=== PATIENT | female | born 1980 | race Caucasian/White ===

== ENCOUNTER → 2017-07-28 | Outpatient (CLI) | payer BC ==
[~2017-07-28] MED LIST: DULO60CA44 PO
== END | disposition home or self-care (01) ==
LOC: C.PATHSPEC 17:34
PROVIDERS: ATTEND Plastic Surgery
DX: L98.429 Non-pressure chronic ulcer of back with unspecified severity (principal); L90.5 Scar conditions and fibrosis of skin

== ENCOUNTER 2017-10-26 20:32 | Emergency (ER) | payer OTHER ==
[~2017-10-26] VITALS: Ht 172.7 cm; Wt 86.0 kg
[~2017-10-26 20:32] MED LIST changes: -CYM20 PO; -LIDOCAINE HCL 2% 2 ML VIAL (20MG/ML) ONE; -MIDAZOLAM HCL 1 MG/ML 2ML VIAL ONE; -NRN100 PO; -ONDANSETRON INJ 2 MG/ML 2 ML VIAL ONE; -PROM12.57 PO; -PROPOFOL IV EMULSION 10 MG/ML 20 ML VIAL IV ONE; -SIME80CH PO; -SODIUM CHLORIDE 0.9% 500ML 500 ML IV ONE
[2017-10-26 20:42] VITALS: Ht 172.7 cm; Wt 86.0 kg
[2017-10-26] MEDS ORDERED: PROMETHAZINE HCL INJ 12.5 MG in SODIUM CHLORIDE 0.9% 50ML 50 ML IV STA (20:53)
[2017-10-26] MEDS ORDERED: SODIUM CHLORIDE 0.9% 1000ML 1,000 ML IV STA (20:53)
[2017-10-26] MEDS ORDERED: MoRPHine SULFATE 4 MG/ML 1 ML CARP\\VIAL IV STA (20:59)
[2017-10-26 21:24] LABS: BASO % 0.1 %; BASO ABS # 0.02 K/uL (0-0.2); EOS % 0.3 %; EOS ABS # 0.05 K/uL (0-0.5); HEMATOCRIT 42.7 % (37-47); HEMOGLOBIN 14.6 g/dL (12.0-16.0); IG# 0.06 K/uL (0.00-0.02); LYMPH % 6.7 %; MEAN CORPUSCULAR HEMOGLOBIN 30.4 pg (25-34); MEAN CORPUSCULAR HGB CONC 34.2 g/dl (32-36); MEAN PLATELET VOLUME 10.1 fL (7.4-10.4); MONO % 2.6 %; MONO ABS # 0.38 K/uL (0.11-0.59); NEUT % 89.9 %; NEUT ABS # 13.39 K/uL (1.4-6.5); PLATELET COUNT 308 K/uL (130-400); RED CELL DISTRIBUTION WIDTH CV 13.2 % (11.5-14.5)
--- NOTE | 2017-10-26 21:34 | DIAGNOSTIC IMAGING REPORT ---
CHEST ONE VIEW PORTABLE CLINICAL HISTORY: febrile, emesis s/p colonoscopy COMPARISON STUDY: No previous studies for comparison. FINDINGS: The cardiac and mediastinal contours are normal. There is no evidence of focal pulmonary consolidation. There is no evidence of failure. No pleural effusions are visualized.[ There is no free intraperitoneal air. IMPRESSION: No active disease in the chest. Electronically signed by: Arnulfo Fuentes M.D. 10/26/2017 9:33 PM Dictated Date/Time: 10/26/2017 9:33 PM
[2017-10-26 21:43] LABS: CALCIUM 9.1 mg/dl (8.5-10.1); CREATININE 1.06 mg/dl (0.60-1.20); POTASSIUM 3.6 mmol/L (3.5-5.1)
[2017-10-26 21:46] VITALS: O2SAT 99
[2017-10-26 21:46] LABS: TOTAL PROTEIN 7.5 gm/dl (6.4-8.2)
[2017-10-26] MEDS ORDERED: CYM20 PO (22:09)
[2017-10-26] MEDS ORDERED: NRN100 PO (22:09)
[2017-10-26] MEDS ORDERED: MoRPHine SULFATE 2 MG/ML CARP IV STA (22:21)
[2017-10-26 22:52] LABS: INFLUENZA B ANTIGEN Neg for Influ B (NEG)
[2017-10-26 23:47] VITALS: TEMP 37.2
[2017-10-27] MEDS ORDERED: OPTIRAY 320 IV PRN (00:45)
[2017-10-27] MEDS ORDERED: SODIUM CHLORIDE 0.9% 1000ML 1,000 ML IV STA (00:59)
--- NOTE | 2017-10-27 02:17 | EMERGENCY ROOM VISIT NOTE ---
History First contact with patient: 20:51 Chief Complaint: VOMITING Stated Complaint: HAD COLONOSCOPY TODAY,VOMITING,JOINTS HURT Nursing Triage Summary: pt had colonoscopy today. pt states she went home and took a nap. then woke up nauseated and has a severe headache. pt states she ate something and vomited everything up. c/o nausea, dry heaves, and headache. History of Present Illness The patient is a 37 year old female who presents to the Emergency Room via private vehicle accompanied by female friend with complaints of "had colonoscopy today, vomiting, joints hurt". The patient states that she has a history of endometrial cancer, and stage IV endometriosis. She follows in [place] for this. She states that today she underwent an EGD and colonoscopy performed by Dr. Stubbs around 2:30 PM. She states that she was feeling well, was given IV Zofran prior to discharge and went and ate a burger and fries. She states that she was concerned because Zofran does not work for her. She went home to take a nap and when she woke up she vomited. She states that she is very nauseous. She also has a headache. She came here for evaluation. She rates her overall pain as an 8/10. She notes minimal abdominal pain rather just an uncomfortable sensation. Review of Systems A complete 10-point Review of Systems was discussed with the patient, with pertinent positives and negatives listed in the History of Present Illness. All remaining Review of Systems questions can be considered negative unless otherwise specified. Past Medical/Surgical History Endometrial cancer, stage IV endometriosis Family History Noncontributory Social History Smoking Status: Never Smoker Housing Status: lives alone Patient lives alone locally. Current/Historical Medications Scheduled Calcium Phosphate-Cholecalcife (Caltrate Gummy Bites), 1 TAB PO BID Danazol (Danazol), 50 MG PO BID Duloxetine HCl (Duloxetine HCl), 20 MG PO DAILY Multivitamin (Multivitamin), 1 TAB PO DAILY Scheduled PRN Gabapentin (Gabapentin), 100 MG PO HS PRN for Pain Physical Exam Vital Signs Date Time Temp Pulse Resp B/P (MAP) Pulse Ox O2 Delivery O2 Flow Rate FiO2 10/27/17 02:13 100 18 119/58 97 Room Air 10/27/17 02:08 97 10/27/17 00:40 97 18 120/55 98 Room Air 10/26/17 23:47 37.2 10/26/17 22:43 105 18 133/84 98 Room Air 10/26/17 22:08 107 10/26/17 21:46 99 Room Air 10/26/17 20:42 37.7 94 21 113/72 99 Room Air Physical Exam VITAL SIGNS - Vital signs and nursing notes were reviewed. Borderline febrile at 37.7. Stable. GENERAL -37-year-old female appearing her stated age who is in no acute distress but does appear to be in pain and concerned. Communicates well with provider and answers questions appropriately. SKIN - Without rashes. No meningeal or petechial rash. HEAD - NC/AT. EYES - PERRL with EOMI bilaterally. Sclera anicteric. EARS - No deformities of external structures noted on gross examination bilaterally. NOSE - Midline and without cyanosis. No epistaxis or purulent drainage noted. MOUTH/OROPHARYNX - Without perioral cyanosis. Tongue midline with equal elevation of palate bilaterally. No tonsillar hypertrophy, erythema, or exudates noted. Fair dentition noted. NECK - Neck with FROM. Supple to palpation. No nuchal rigidity. LUNGS - Chest wall symmetric without accessory muscle use, intercostals retractions, or central cyanosis. Normal vesicular breath sounds CTA B/L. No wheezes, rales, or rhonchi appreciated. CARDIAC - RRR with S1/S2. No murmur, rubs, or gallops appreciated. ABDOMEN - Abdominal contour normal without pulsations or visible masses. BS normoactive all four quadrants. Generalized upper quadrant tenderness. No palpable masses, hepatosplenomegaly, or ascites noted. EXTREMITIES - No clubbing or peripheral cyanosis. No pretibial edema present. +5 /5 strength noted in UE/LE bilaterally. NEUROLOGIC - Cranial nerves II through XII grossly intact. Sensory intact to light touch throughout. PSYCH - A&O, and cooperates fully with examiner. Pt is very pleasant and interacts well with examiner. Medical Decision & Procedures ER Provider Diagnostic Interpretation: CHEST ONE VIEW PORTABLE CLINICAL HISTORY: febrile, emesis s/p colonoscopy COMPARISON STUDY: No previous studies for comparison. FINDINGS: The cardiac and mediastinal contours are normal. There is no evidence of focal pulmonary consolidation. There is no evidence of failure. No pleural effusions are visualized.[ There is no free intraperitoneal air. IMPRESSION: No active disease in the chest. Electronically signed by: Arnulfo Fuentes M.D. 10/26/2017 9:33 PM Dictated Date/Time: 10/26/2017 9:33 PM KUB as read by myself and the attending physician: No free air. There is a large amount of gas present which is to be expected following the colonoscopy. CT ABDOMEN & PELVIS With Contrast: Patchy airspace opacities in the left lower lobe worrisome for pneumonia or aspiration. 2.1 x 1.9 cm ill-defined soft tissue density in the mesentery of the left mid abdomen (series 2, image 47). This is nonspecific, and may represent an enlarged lymph node versus other soft tissue mass such as desmoid. Follow-up PET /CT may be useful to further characterize metabolic activity. Single mildly prominent fluid-filled loop of small bowel in the left upper quadrant. No evidence of bowel obstruction. Subcentimeter hypodensity in the left kidney is too small to characterize. No urolithiasis or hydronephrosis. Appendix not visualized. Possibly surgically absent. Prior hysterectomy. Fat-containing umbilical hernia. Radiologist: Sharath Burch DO Study ready at 01:13 and initial results transmitted at 01:25 Laboratory Results 10/26/17 21:05 Red Blood Count 4.80, Mean Corpuscular Volume 89.0, Mean Corpuscular Hemoglobin 30.4, Mean Corpuscular Hemoglobin Concent 34.2, Mean Platelet Volume 10.1, Neutrophils (%) (Auto) 89.9, Lymphocytes (%) (Auto) 6.7, Monocytes (%) (Auto) 2.6, Eosinophils (%) (Auto) 0.3, Basophils (%) (Auto) 0.1, Neutrophils # (Auto) 13.39, Lymphocytes # (Auto) 1.00, Monocytes # (Auto) 0.38, Eosinophils # (Auto) 0.05, Basophils # (Auto) 0.02 10/26/17 21:05 Test 10/26/17 21:05 10/26/17 21:15 10/26/17 22:10 White Blood Count 14.90 K/uL (4.8-10.8) Red Blood Count 4.80 M/uL (4.2-5.4) Hemoglobin 14.6 g/dL (12.0-16.0) Hematocrit 42.7 % (37-47) Mean Corpuscular Volume 89.0 fL (80-100) Mean Corpuscular Hemoglobin 30.4 pg (25-34) Mean Corpuscular Hemoglobin Concent 34.2 g/dl (32-36) Platelet Count 308 K/uL (130-400) Mean Platelet Volume 10.1 fL (7.4-10.4) Neutrophils (%) (Auto) 89.9 % Lymphocytes (%) (Auto) 6.7 % Monocytes (%) (Auto) 2.6 % Eosinophils (%) (Auto) 0.3 % Basophils (%) (Auto) 0.1 % Neutrophils # (Auto) 13.39 K/uL (1.4-6.5) Lymphocytes # (Auto) 1.00 K/uL (1.2-3.4) Monocytes # (Auto) 0.38 K/uL (0.11-0.59) Eosinophils # (Auto) 0.05 K/uL (0-0.5) Basophils # (Auto) 0.02 K/uL (0-0.2) RDW Standard Deviation 43.0 fL (36.4-46.3) RDW Coefficient of Variation 13.2 % (11.5-14.5) Immature Granulocyte % (Auto) 0.4 % Immature Granulocyte # (Auto) 0.06 K/uL (0.00-0.02) Anion Gap 7.0 mmol/L (3-11) Est Creatinine Clear Calc Drug Dose 83.4 ml/min Estimated GFR () 77.7 Estimated GFR (Non- 67.0 BUN/Creatinine Ratio 14.2 (10-20) Calcium Level 9.1 mg/dl (8.5-10.1) Magnesium Level 2.1 mg/dl (1.8-2.4) Total Bilirubin 0.4 mg/dl (0.2-1) Aspartate Amino Transf (AST/SGOT) 18 U/L (15-37) Alanine Aminotransferase (ALT/SGPT) 28 U/L (12-78) Alkaline Phosphatase 67 U/L (45-117) Total Protein 7.5 gm/dl (6.4-8.2) Albumin 4.0 gm/dl (3.4-5.0) Globulin 3.5 gm/dl (2.5-4.0) Albumin/Globulin Ratio 1.1 (0.9-2) Urine Color YELLOW Urine Appearance CLEAR (CLEAR) Urine pH >= 9.0 (4.5-7.5) Urine Specific [place] 1.022 (1.000-1.030) Urine Protein NEG (NEG) Urine Glucose (UA) NEG (NEG) Urine Ketones 1+ (NEG) Urine Occult Blood NEG (NEG) Urine Nitrite NEG (NEG) Urine Bilirubin NEG (NEG) Urine Urobilinogen NEG (NEG) Urine Leukocyte Esterase NEG (NEG) Urine WBC (Auto) 1-5 /hpf (0-5) Urine RBC (Auto) 0-4 /hpf (0-4) Urine Hyaline Casts (Auto) 1-5 /lpf (0-5) Urine Epithelial Cells (Auto) 10-20 /lpf (0-5) Urine Bacteria (Auto) NEG (NEG) Urine Test NEG (NEG) Influenza Type A Antigen Neg for Influ A (NEG) Influenza Type B Antigen Neg for Influ B (NEG) Medications Administered Medications (Trade) Dose Ordered Sig/Lisandra Route Start Time Stop Time Status Last Admin Dose Admin Sodium Chloride 1,000 ml @ 999 mls/hr Q1H1M STAT IV 10/26/17 20:53 10/26/17 21:53 DC 10/26/17 21:41 999 MLS/HR Promethazine HCl 12.5 mg/Sodium Chloride 50.5 ml @ 204 mls/hr NOW STAT IV 10/26/17 20:53 10/26/17 21:07 DC 10/26/17 21:41 204 MLS/HR Morphine Sulfate (MoRPHine SULFATE INJ) 4 mg NOW STAT IV 10/26/17 20:59 10/26/17 21:00 DC 10/26/17 21:41 4 MG Morphine Sulfate (MoRPHine SULFATE INJ) 2 mg NOW STAT IV 10/26/17 22:21 10/26/17 22:22 DC 10/26/17 22:34 2 MG Sodium Chloride 1,000 ml @ 999 mls/hr Q1H1M STAT IV 10/27/17 00:59 10/27/17 01:59 DC 10/27/17 00:59 999 MLS/HR Promethazine HCl 12.5 mg/Sodium Chloride 50.5 ml @ 204 mls/hr NOW STAT IV 10/27/17 02:19 10/27/17 02:33 DC 10/27/17 02:40 204 MLS/HR Acetaminophen (Tylenol Tab) 650 mg NOW STAT PO 10/27/17 02:19 10/27/17 02:20 DC 10/27/17 02:37 650 MG Medical Decision Patient was seen and evaluated as above in room C6. Review was performed of nursing notes and vital signs. She is borderline febrile at 37.7C. After obtaining a thorough history and physical examination the above work up was performed. She underwent an EGD and colonoscopy today. Results were reviewed. She was given a liter of normal saline. She was given Phenergan for nausea. She was given morphine for pain she was experiencing in the abdomen and her legs. She notes that this helped her pain somewhat but the abdominal pain which began as very minimal has worsened. CBC reveals leukocytosis of 14.90. No emergent metabolic abnormality. Patient's urine reveals 1+ ketones and epithelial cells. Otherwise no concerning finding. Urine test negative. Influenza negative. Vital signs were tracked throughout her stay. Fever improved however the tachycardia persisted despite fluids. Her blood pressure diastolic value began to drop slightly. When talking with the patient she expressed great concern that she may be experiencing a complication from the procedure. I informed her that her chest x-ray and her KUB looked well here and there is no free air or evidence of perforation. I informed her that it was likely she was experiencing nausea following not eating much food as she was preparing for the colonoscopy and EGD and then went home and ate a burger and [place] fries which likely caused her to vomit. Despite this, she noticed more abdominal pain throughout her stay here in the hospital. CT scan was obtained of the abdomen secondary to the worsening of the patient's abdominal pain. There is no finding on this to suggest an acute abdominal cause however she does have findings of a potential left lower lobe pneumonia/aspiration. The case was discussed with the attending physician and subsequently the hospitalist for potential admission to observe the patient because of her findings. The concern and reason for potential admission/medical consultation is that the patient presents to us today febrile, became tachycardic throughout her stay, and has pneumonia/potential aspiration noted on her CT and negative influenza or other process to better explain these abnormalities. She is s/p a procedure. I do believe that inpatient management is warranted. She was given Phenergan for nausea, morphine for pain, Tylenol for pain as well as fluids. Antibiotics will be initiated by the admission team. The patient was educated upon management, had questions answered prior to discharge, and was discharged home in good condition. Case was discussed with the attending physician. I attest that I have personally reviewed the patient medication list. I attest that I have reviewed the patient's blood pressure and it was found to be appropriate. In the evaluation and treatment of this patient the following differential diagnoses were entertained: Atelectasis, pneumonia, medication reaction, bowel perforation, among others. Impression Primary Impression: Nausea and vomiting Additional Impression: Aspiration pneumonia Departure Information Referrals Janny Perez C.R.N.P. (PCP) Patient Instructions [facility] Problem Qualifiers
[2017-10-27] MEDS ORDERED: PROMETHAZINE HCL INJ 12.5 MG in SODIUM CHLORIDE 0.9% 50ML 50 ML IV STA (02:19)
[2017-10-27] MEDS ORDERED: ACETAMINOPHEN 325 MG TAB PO STA (02:19)
--- NOTE | 2017-10-27 02:42 | History and Physical ---
History & Physical Date & Time of Service: Oct 27, 2017 at 02:40 Chief Complaint: Had Colonoscopy Today,Vomiting,Joints Hurt Primary Care Physician: Janny Perez C.R.N.P. Past Medical/Surgical History Medical Problems: (1) Nausea and vomiting Social History Smoking Status: Never Smoker Allergies Coded Allergies: No Known Allergies (Unverified , 10/26/17) Home Medications Scheduled Calcium Phosphate-Cholecalcife (Caltrate Gummy Bites), 1 TAB PO BID Danazol (Danazol), 50 MG PO BID Duloxetine HCl (Duloxetine HCl), 20 MG PO DAILY Multivitamin (Multivitamin), 1 TAB PO DAILY Scheduled PRN Gabapentin (Gabapentin), 100 MG PO HS PRN for Pain Physical Exam Vital Signs Date Time Temp Pulse Resp B/P (MAP) Pulse Ox O2 Delivery O2 Flow Rate FiO2 10/27/17 02:13 100 18 119/58 97 Room Air 10/27/17 02:08 97 10/27/17 00:40 97 18 120/55 98 Room Air 10/26/17 23:47 37.2 10/26/17 22:43 105 18 133/84 98 Room Air 10/26/17 22:08 107 10/26/17 21:46 99 Room Air 10/26/17 20:42 37.7 94 21 113/72 99 Room Air Diagnostics Laboratory Results Results Past 24 Hours Test 10/26/17 21:05 10/26/17 21:15 10/26/17 22:10 Range/Units White Blood Count 14.90 4.8-10.8 K/uL Red Blood Count 4.80 4.2-5.4 M/uL Hemoglobin 14.6 12.0-16.0 g/dL Hematocrit 42.7 37-47 % Mean Corpuscular Volume 89.0 80-100 fL Mean Corpuscular Hemoglobin 30.4 25-34 pg Mean Corpuscular Hemoglobin Concent 34.2 32-36 g/dl Platelet Count 308 130-400 K/uL Mean Platelet Volume 10.1 7.4-10.4 fL Neutrophils (%) (Auto) 89.9 % Lymphocytes (%) (Auto) 6.7 % Monocytes (%) (Auto) 2.6 % Eosinophils (%) (Auto) 0.3 % Basophils (%) (Auto) 0.1 % Neutrophils # (Auto) 13.39 1.4-6.5 K/uL Lymphocytes # (Auto) 1.00 1.2-3.4 K/uL Monocytes # (Auto) 0.38 0.11-0.59 K/uL Eosinophils # (Auto) 0.05 0-0.5 K/uL Basophils # (Auto) 0.02 0-0.2 K/uL RDW Standard Deviation 43.0 36.4-46.3 fL RDW Coefficient of Variation 13.2 11.5-14.5 % Immature Granulocyte % (Auto) 0.4 % Immature Granulocyte # (Auto) 0.06 0.00-0.02 K/uL Sodium Level 140 136-145 mmol/L Potassium Level 3.6 3.5-5.1 mmol/L Chloride Level 105 98-107 mmol/L Carbon Dioxide Level 27 21-32 mmol/L Anion Gap 7.0 3-11 mmol/L Blood Urea Nitrogen 15 7-18 mg/dl Creatinine 1.06 0.60-1.20 mg/dl Est Creatinine Clear Calc Drug Dose 83.4 ml/min Estimated GFR () 77.7 Estimated GFR (Non- 67.0 BUN/Creatinine Ratio 14.2 10-20 Random Glucose 102 70-99 mg/dl Calcium Level 9.1 8.5-10.1 mg/dl Magnesium Level 2.1 1.8-2.4 mg/dl Total Bilirubin 0.4 0.2-1 mg/dl Aspartate Amino Transf (AST/SGOT) 18 15-37 U/L Alanine Aminotransferase (ALT/SGPT) 28 12-78 U/L Alkaline Phosphatase 67 45-117 U/L Total Protein 7.5 6.4-8.2 gm/dl Albumin 4.0 3.4-5.0 gm/dl Globulin 3.5 2.5-4.0 gm/dl Albumin/Globulin Ratio 1.1 0.9-2 Urine Color YELLOW Urine Appearance CLEAR CLEAR Urine pH >= 9.0 4.5-7.5 Urine Specific Dewitt 1.022 1.000-1.030 Urine Protein NEG NEG Urine Glucose (UA) NEG NEG Urine Ketones 1+ NEG Urine Occult Blood NEG NEG Urine Nitrite NEG NEG Urine Bilirubin NEG NEG Urine Urobilinogen NEG NEG Urine Leukocyte Esterase NEG NEG Urine WBC (Auto) 1-5 0-5 /hpf Urine RBC (Auto) 0-4 0-4 /hpf Urine Hyaline Casts (Auto) 1-5 0-5 /lpf Urine Epithelial Cells (Auto) 10-20 0-5 /lpf Urine Bacteria (Auto) NEG NEG Urine Test NEG NEG Influenza Type A Antigen Neg for Influ A NEG Influenza Type B Antigen Neg for Influ B NEG Impression Resuscitation Status
[2017-10-27] MEDS ORDERED: SIMETHICONE 80 MG CHEW PO STA (03:19)
--- NOTE | 2017-10-27 03:21 | Medical Consult ---
Consultation Date of Consultation: Oct 27, 2017. Attending Physician: Johanny Reason for Consultation: Evaluation for admission History of Present Illness 37 year old female with malignant ovarian neoplasm s/p cystecomy and oophrectomy and endometrial cancer s/p hysterectomy presents to ER today for evaluation post colonoscopy. She had gone home post procedure, eaten a meal and gone to bed. She awoke feeling nauseous, with 1 episode of large volume emesis. She states that her nausea has been intermittent since then. She is complaining of a headache and chills since then. She claims she is trying to keep hydrated. She denies CP, palpitations, dyspnea. She has abdominal pain diffusely across her lower abdomen, but this is an unchanged pain she has had for a while secondary to her endometriosis. She denies lower extremity swelling or rashes. She is feeling hungry, and has been ambulating without exacerbating symptoms, and voiding without urinary symptoms. ROS is unremarkable except as noted above. Past Medical/Surgical History Medical Problems: (1) Aspiration pneumonia Status: Acute (2) Nausea and vomiting Status: Acute Family History Noncontributory Social History Smoking Status: Never Smoker Smokeless Tobacco Use: No Alcohol Use: none Drug Use: none Marital Status: single Housing Status: lives alone Allergies Coded Allergies: No Known Allergies (Unverified , 10/26/17) Current Inpatient Medications Current Inpatient Medications Medications (Trade) Dose Ordered Sig/Lisandra Route Start Time Stop Time Status Last Admin Dose Admin Ioversol (Optiray 320) 100 ml UD PRN IV 10/27/17 00:45 10/31/17 00:44 Simethicone (Mylicon Chew Tab) 80 mg ONE STAT PO 10/27/17 03:10 10/27/17 03:11 UNV Physical Exam Date Time Temp Pulse Resp B/P (MAP) Pulse Ox O2 Delivery O2 Flow Rate FiO2 10/27/17 02:13 100 18 119/58 97 Room Air 10/27/17 02:08 97 10/27/17 00:40 97 18 120/55 98 Room Air 10/26/17 23:47 37.2 10/26/17 22:43 105 18 133/84 98 Room Air 10/26/17 22:08 107 10/26/17 21:46 99 Room Air 10/26/17 20:42 37.7 94 21 113/72 99 Room Air General Appearance: WD/WN, no apparent distress, + pertinent finding (Patient appears slightly clammy) Head: normocephalic, atraumatic Eyes: normal inspection ENT: hearing grossly normal, pharynx normal Neck: supple, no adenopathy Respiratory/Chest: normal breath sounds, no respiratory distress, no accessory muscle use Cardiovascular: regular rate, rhythm, no murmur, normal peripheral pulses Abdomen/GI: normal bowel sounds, soft, + tenderness (diffusely, no focal tenderness), + pertinent finding (no rebound/guarding. No significant distension. Pain is not positional) Back: normal inspection, no CVA tenderness Extremities/Musculoskelatal: no calf tenderness, no pedal edema Neurologic/Psych: alert, normal mood/affect, oriented x 3 Skin: normal color, warm/dry, no rash Laboratory Results Last 24 Hours Test 10/26/17 21:05 10/26/17 21:15 10/26/17 22:10 White Blood Count 14.90 K/uL Red Blood Count 4.80 M/uL Hemoglobin 14.6 g/dL Hematocrit 42.7 % Mean Corpuscular Volume 89.0 fL Mean Corpuscular Hemoglobin 30.4 pg Mean Corpuscular Hemoglobin Concent 34.2 g/dl Platelet Count 308 K/uL Mean Platelet Volume 10.1 fL Neutrophils (%) (Auto) 89.9 % Lymphocytes (%) (Auto) 6.7 % Monocytes (%) (Auto) 2.6 % Eosinophils (%) (Auto) 0.3 % Basophils (%) (Auto) 0.1 % Neutrophils # (Auto) 13.39 K/uL Lymphocytes # (Auto) 1.00 K/uL Monocytes # (Auto) 0.38 K/uL Eosinophils # (Auto) 0.05 K/uL Basophils # (Auto) 0.02 K/uL RDW Standard Deviation 43.0 fL RDW Coefficient of Variation 13.2 % Immature Granulocyte % (Auto) 0.4 % Immature Granulocyte # (Auto) 0.06 K/uL Sodium Level 140 mmol/L Potassium Level 3.6 mmol/L Chloride Level 105 mmol/L Carbon Dioxide Level 27 mmol/L Anion Gap 7.0 mmol/L Blood Urea Nitrogen 15 mg/dl Creatinine 1.06 mg/dl Est Creatinine Clear Calc Drug Dose 83.4 ml/min Estimated GFR () 77.7 Estimated GFR (Non- 67.0 BUN/Creatinine Ratio 14.2 Random Glucose 102 mg/dl Calcium Level 9.1 mg/dl Magnesium Level 2.1 mg/dl Total Bilirubin 0.4 mg/dl Aspartate Amino Transf (AST/SGOT) 18 U/L Alanine Aminotransferase (ALT/SGPT) 28 U/L Alkaline Phosphatase 67 U/L Total Protein 7.5 gm/dl Albumin 4.0 gm/dl Globulin 3.5 gm/dl Albumin/Globulin Ratio 1.1 Urine Color YELLOW Urine Appearance CLEAR Urine pH >= 9.0 Urine Specific [place]rum 1.022 Urine Protein NEG Urine Glucose (UA) NEG Urine Ketones 1+ Urine Occult Blood NEG Urine Nitrite NEG Urine Bilirubin NEG Urine Urobilinogen NEG Urine Leukocyte Esterase NEG Urine WBC (Auto) 1-5 /hpf Urine RBC (Auto) 0-4 /hpf Urine Hyaline Casts (Auto) 1-5 /lpf Urine Epithelial Cells (Auto) 10-20 /lpf Urine Bacteria (Auto) NEG Urine Test NEG Influenza Type A Antigen Neg for Influ A Influenza Type B Antigen Neg for Influ B Assessment & Plan Vitals reviewed: afebrile, borderline intermittent tachycardia, BP within acceptable range, saturating well on RA Labs reviewed: mild leukocytosis, BML WNL, evidence of dehydration on UA, flu swabs negative. Imaging reviewed: no obvious findings. Stat rad reports reviewed: dilated bowel without perforation, ?aspiration in LLL Assessment: Patient likely symptomatic from dilated bowels post colonoscopy. This is likely the cause of her tachycardia (discomfort) as well as nausea. Leukocytosis also possibly secondary to procedure. Query aspiration secondary to vomiting. Patient afebrile and without any respiratory symptoms. Plan: Discussion re inpatient versus outpatient management of patient's symptoms. Patient chooses outpatient management: Discharge with Phenergan and simethicone, and recommend follow up with PCP in 2- 3 days. No antibiotics at this time as patient has no s/sx and antibiotics will likely worsen GI symptoms at this time. Precautions for return to ER reviewed, ie. new or worsening symptoms Patient had no further questions Attending addendum: I have physically seen this patient, have supervised the medical residents activities, and agree with the H&P unless as otherwise noted. Assessment and Plan: Agree with the above assessment. The patient should be able to be discharged home on symptomatic treatment with Phenergan and simethicone. Advise a full liquid to low residue diet in the interim. Resident Tracking Resident Involvement: Resident Care Provided Care Provided: [facility]
[2017-10-27] MEDS ORDERED: PROM12.57 PO (04:24)
[2017-10-27] MEDS ORDERED: SIME80CH PO (04:24)
[2017-10-27 04:28] VITALS: BP 134/76; PULSE 80; O2SAT 98
--- NOTE | 2017-10-27 04:31 | EMERGENCY ROOM VISIT NOTE ---
ED Visit Note I was approached by the [facility] resident, Dr. Diaz, to discharge this patient as they were unable to access discharge paperwork. The patient was fully evaluated by them prior to discharge and was deemed fit for discharge home. I did briefly evaluate the patient and discuss the plan of care. She will be discharged with simethicone and Phenergan rx and will follow up with PCP as an outpatient. Return precautions discussed. Please see medical consultation for further information.
--- NOTE | 2017-10-27 06:46 | DIAGNOSTIC IMAGING REPORT ---
[facility] CLINICAL HISTORY: colonoscopy earlier today, mild abd pain. emesis COMPARISON STUDY: No previous studies for comparison. FINDINGS: Generalized nonobstructive ileus. Air-filled small bowel as well as colon. Moderate fecal material within the sending colon. No secondary signs of free air. IMPRESSION: Generalized nonobstructive ileus. The above report was generated using voice recognition software. It may contain grammatical, syntax or spelling errors. Electronically signed by: Teofilo Elizondo M.D. 10/27/2017 6:45 AM Dictated Date/Time: 10/27/2017 6:44 AM
--- NOTE | 2017-10-27 07:50 | DIAGNOSTIC IMAGING REPORT ---
ABDOMEN AND PELVIS CT WITH IV CONTRAST CT DOSE: 472.21 mGy.cm HISTORY: Acute generalized abdominal pain with emesis. Recent colonoscopy. emesis, abd pain, tachycardia, EGD and colonoscopy 10/26/17 TECHNIQUE: Multiaxial CT images of the abdomen and pelvis were performed following the use of intravenous contrast. A dose lowering technique was utilized adhering to the principles of ALARA. COMPARISON STUDY: Chest radiograph 10/26/2017. FINDINGS: Patchy segmental groundglass and consolidative opacities are noted within the imaged left lower lobe and lingula right lung base is generally clear. There is no pneumatosis or pneumoperitoneum identified. Imaged inferior cardiac chambers are unremarkable. The liver, spleen, pancreas, and adrenal glands are unremarkable. There is a suggested phrygian cap of the gallbladder. There is a 3 mm area of increased attenuation along the nondependent mid gallbladder lumen suspicious for gallbladder polyp, image 193 series 3. 8 mm low attenuating lesion of the interpolar left kidney suggests renal cyst. There is no renal calculi or obstructive uropathy. Ureters are unremarkable. The urinary bladder is decompressed. Prior hysterectomy. Aorta is normal in both course and caliber. No bulky adenopathy. Mildly prominent loop of small bowel within left upper abdomen measures 2.7 cm transversely and demonstrates an air-fluid level. No bowel wall thickening identified. Postsurgical changes adjacent to the cecum suggests prior cholecystectomy. Nonenlarged lymph nodes of the right lower quadrant mesentery are likely physiologic. There is a 3.1 x 1.7 x 1.5 cm lobular soft tissue attenuating mesenteric lesion of the left midabdomen, image 233 series 3 without associated calcifications identified. Minimal angular nondilated small bowel loops are seen adjacent to this lesion which may reflect some minimal adjacent tethering of the mesentery. Small fat filled periumbilical hernia, diastases 2.0 cm. Soft tissues are unremarkable. Bones appear intact. IMPRESSION: 1. Indeterminate 3.1 cm lobular soft tissue attenuating lesion of the left mid abdominal mesentery without associated inflammatory changes. Differential considerations would include conglomerate lymph nodes of unknown etiology, chronic sclerosing mesenteritis, desmoid tumor, or less likely a noncalcified carcinoid lesion. Three-month contrast-enhanced follow-up CT is recommended to exclude progressive abnormality. 2. Patchy subsegmental consolidative and groundglass opacities of the left lower lobe and inferior segment lingula are partially imaged and suggest bronchopneumonia or aspiration pneumonitis. 3. Mildly prominent loop of small bowel within left mid abdomen with associated air-fluid level is likely physiologic. No bowel obstruction or focal bowel wall thickening identified. 4. Probable 3 mm gallbladder polyp. Electronically signed by: Elvis Hernandez M.D. 10/27/2017 7:49 AM Dictated Date/Time: 10/27/2017 6:51 AM
== END 2017-10-27 04:28 | disposition home or self-care (01) ==
LOC: C.EDB 20:34
DX: R11.2 Nausea with vomiting, unspecified (principal); J69.0 Pneumonitis due to inhalation of food and vomit; Z85.42 Personal history of malignant neoplasm of other parts of uterus; N80.9 Endometriosis, unspecified; Z79.899 Other long term (current) drug therapy; M25.50 Pain in unspecified joint

== ENCOUNTER → 2017-10-26 | Day surgery (SDC) | payer OTHER ==
[2017-10-22 08:02] VITALS: Ht 172.7 cm; Wt 86.4 kg
[~2017-10-26] VITALS: Ht 172.7 cm; Wt 86.4 kg
[~2017-10-26] MED LIST changes: +CALC1CHW32 PO; +CYM20 PO; +DULO-24 PO; -DULO60CA44 PO; +GABA-112 PO; +LIDOCAINE HCL 2% 2 ML VIAL (20MG/ML) ONE; +MIDAZOLAM HCL 1 MG/ML 2ML VIAL ONE; +MULT-506 PO; +NRN100 PO; +ONDANSETRON INJ 2 MG/ML 2 ML VIAL ONE; +PROM12.57 PO; +PROPOFOL IV EMULSION 10 MG/ML 20 ML VIAL IV ONE; +SIME80CH PO; +SODIUM CHLORIDE 0.9% 500ML 500 ML IV ONE; +[UNRECOGNIZED DRUG - CODE] PO
[2017-10-26 14:09] VITALS: TEMP 36.7
--- NOTE | 2017-10-26 14:32 | Endo History and Physical ---
History & Physical Date of Service: Oct 26, 2017. Chief Complaint: anemia; adenocarcinoma Referring Physician: Dr. Vega History of Present Illness adenocarcinoma, pelvic pain Past Surgical History Hx Cardiac Surgery: No Hx Internal Defibrillator: No Hx Pacemaker: No Hx Abdominal Surgery: Yes (LAPAROSCOPY FOR CYSTECTOMY AND OOPHORECTOMY, LAPAROSCOPY) Hx of Implantable Prosthesis: No Hx Post-Op Nausea and Vomiting: Yes (PHENERGAN HELPS) Hx Cancer Surgery: Yes (FULL HYSTER) Hx Thoracic Surgery: No Hx Orthopedic: No Hx Urinary Tract Surgery: No Family History None Social History Smoking Status: Never Smoker Hx Substance Use: No Hx Alcohol Use: Yes (SOCIAL/OCCASIONAL) Allergies Coded Allergies: No Known Allergies (Unverified , 10/26/17) Current Medications Reported Home Medications Medications Dose Route/Sig Max Daily Dose Days Date Category Caltrate Gummy Bites (Calcium Phosphate-Cholecalcife) 1 Chw Chw 1 Tab PO BID 10/22/17 Reported Multivitamin (Multivitamins) Tab 1 Tab PO DAILY 10/22/17 Reported Neurontin (Gabapentin) 100 Mg Cap 100 Mg PO HS PRN 10/22/17 Reported Danazol 50 Mg Cap 1 Cap PO BID 10/22/17 Reported Cymbalta (Duloxetine Hcl) 20 Mg Cap 20 Mg PO QAM 10/22/17 Reported Vital Signs Weight (Kilograms): 86.36 Height (Feet): 5 Height (Inches): 8 Date Time Temp Pulse Resp B/P (MAP) Pulse Ox O2 Delivery O2 Flow Rate FiO2 10/26/17 14:09 36.7 80 16 110/85 (93) 97 Room Air Physical Exam General Appearance: WD/WN, no apparent distress Respiratory/Chest: Auscultation: breath sounds normal Cardiovascular: Heart Auscultation: RRR Abdomen: Bowel Sounds: normal Inspection & Palpation: soft, non-distended, no tenderness, guarding & rebound Assessment and Plan EGD and colon with possible bx
--- NOTE | 2017-10-26 15:36 | Discharge Instructions ---
Endoscopy Patient Instructions Date / Procedure(s) Performed Oct 26, 2017. Colonoscopy, EGD Allergy Information Coded Allergies: No Known Allergies (Unverified , 10/26/17) Discharge Date / Findings Oct 26, 2017. normal EGD/push enteroscopy and colonoscopy Medication Instructions Restart Stopped Medication(s): Reported Home Medications Medications Dose Route/Sig Max Daily Dose Days Date Category Caltrate Gummy Bites (Calcium Phosphate-Cholecalcife) 1 Chw Chw 1 Tab PO BID 10/22/17 Reported Multivitamin (Multivitamins) Tab 1 Tab PO DAILY 10/22/17 Reported Neurontin (Gabapentin) 100 Mg Cap 100 Mg PO HS PRN 10/22/17 Reported Danazol 50 Mg Cap 1 Cap PO BID 10/22/17 Reported Cymbalta (Duloxetine Hcl) 20 Mg Cap 20 Mg PO QAM 10/22/17 Reported Reported Home Medications Medications Dose Route/Sig Max Daily Dose Days Date Category Caltrate Gummy Bites (Calcium Phosphate-Cholecalcife) 1 Chw Chw 1 Tab PO BID 10/22/17 Reported Multivitamin (Multivitamins) Tab 1 Tab PO DAILY 10/22/17 Reported Neurontin (Gabapentin) 100 Mg Cap 100 Mg PO HS PRN 10/22/17 Reported Danazol 50 Mg Cap 1 Cap PO BID 10/22/17 Reported Cymbalta (Duloxetine Hcl) 20 Mg Cap 20 Mg PO QAM 10/22/17 Reported Provider Instructions Activity Restrictions - No exercising or heavy lifting for 24 hours. - Do not drink alcohol the day of the procedure. - Do not drive a car or operate machinery until the day after the procedure. - Do not make any important decisions or sign important papers in 24 hours after the procedure. Following Day: - Return to full activity which may include returning to work/school. Diet Start your diet with liquids and light foods (jello, soup, juice, toast). Then eat your usual diet if not nauseated. Treatment For Common After Affects For mild abdominal pain, bloating, or excessive gas: - Rest - Eat lightly - Lie on right side Follow-Up Information Follow-up with Dr. Vega as scheduled Anesthesia Information What You Should Know You have had a procedure that required some medicine to reduce anxiety and discomfort. This treatment is called moderate sedation. After receiving the treatment, you may be sleepy, but you will be able to breathe on your own. The effects of the treatment may last for several hours. Follow these instructions along with Activity/Diet recommendations noted above: * Do NOT do anything where dizziness or clumsiness would be dangerous. * Rest quietly at home today, then you can be up and about tomorrow. * Have a responsible person stay with you the rest of today. * You may have had an I.V. today. If so, you may take the dressing off later today. Recommendations Call your doctor if: * Trouble breathing * Continuous vomiting for more than 24 hours * Temperature above 101 degrees * Severe abdominal pain or bloating * Pain not relieved by pain medicine ordered * There is increased drainage or redness from any incision * A large amount of rectal bleeding greater than 2-3 tablespoons. (If you had a polyp/s removed or have hemorrhoids, a small amount of blood - from the rectum is to be expected.) * You have any unanswered questions or concerns. IN THE EVENT OF A SERIOUS EMERGENCY, GO TO THE NEAREST EMERGENCY ROOM Your discharge instructions were prepared by provider Jason Stubbs. Patient Instructions Signature Page Radha Clay Patient (or Guardian) Signature/Date: I have read and understand the instructions given to me by my caregivers. Caregiver/RN/Doctor Signature/Date: The above-named patient and/or guardian has received patient instructions on this date. + Original Patient Signature Page (only) stays with chart. Please make copy for patient.
--- NOTE | 2017-10-26 15:40 | GI REPORT ---
Procedure Date: 10/26/2017 3:09 PM Procedure: Colonoscopy Indications: Personal history of malignant ovarian neoplasm Medicines: Propofol per Anesthesia Complications: No immediate complications. Estimated blood loss: None. Estimated Blood Loss: Estimated blood loss: none. Procedure: Pre-Anesthesia Assessment: - Prior to the procedure, a History and Physical was performed, and patient medications and allergies were reviewed. The patient's tolerance of previous anesthesia was also reviewed. The risks and benefits of the procedure and the sedation options and risks were discussed with the patient. All questions were answered, and informed consent was obtained. Prior Anticoagulants: The patient has taken no previous anticoagulant or antiplatelet agents. ASA Grade Assessment: II - A patient with mild systemic disease. After reviewing the risks and benefits, the patient was deemed in satisfactory condition to undergo the procedure. After I obtained informed consent, the scope was passed under direct vision. Throughout the procedure, the patient's blood pressure, pulse, and oxygen saturations were monitored continuously. The scope was introduced through the anus and advanced to the cecum, identified by appendiceal orifice and ileocecal valve. The colonoscopy was performed without difficulty. The patient tolerated the procedure well. The quality of the bowel preparation was good. Findings: The perianal and digital rectal examinations were normal. Pertinent negatives include normal sphincter tone, no palpable rectal lesions and no anal lesion or abnormality was detected. The colon (entire examined portion) appeared normal. The retroflexed view of the distal rectum and anal verge was normal and showed no anal or rectal abnormalities. Impression: - The entire examined colon is normal. - The distal rectum and anal verge are normal on retroflexion view. - No specimens collected. Recommendation: - Discharge patient to home (ambulatory). - Resume regular diet. - Continue present medications. - Return to referring physician as previously scheduled. MD Jason Grant MD 10/26/2017 3:39:53 PM This report has been signed electronically. Note Initiated On: 10/26/2017 3:09 PM I attest to the content of the Intraoperative Record and orders documented therein, exceptions below
--- NOTE | 2017-10-26 15:47 | GI REPORT ---
Procedure Date: 10/26/2017 2:47 PM Procedure: Upper GI endoscopy Indications: Personal history of malignant neoplasm Medicines: Propofol per Anesthesia Complications: No immediate complications. Estimated blood loss: None. Estimated Blood Loss: Estimated blood loss: none. Procedure: Pre-Anesthesia Assessment: - Prior to the procedure, a History and Physical was performed, and patient medications and allergies were reviewed. The patient's tolerance of previous anesthesia was also reviewed. The risks and benefits of the procedure and the sedation options and risks were discussed with the patient. All questions were answered, and informed consent was obtained. Prior Anticoagulants: The patient has taken no previous anticoagulant or antiplatelet agents. ASA Grade Assessment: II - A patient with mild systemic disease. After reviewing the risks and benefits, the patient was deemed in satisfactory condition to undergo the procedure. After obtaining informed consent, the endoscope was passed under direct vision. Throughout the procedure, the patient's blood pressure, pulse, and oxygen saturations were monitored continuously. The scope was introduced through the mouth, and advanced to the second part of duodenum. The upper GI endoscopy was accomplished without difficulty. The patient tolerated the procedure well. Findings: The examined esophagus was normal. The entire examined stomach was normal. The examined duodenum was normal. The examined jejunum was normal. Retained gastric contents are not identified on this exam. The cardia and gastric fundus were normal on retroflexion. The Z-line was regular and was found 40 cm from the incisors. Impression: - Normal esophagus. - Normal stomach. - Normal examined duodenum. - Normal examined jejunum. - Z-line regular, 40 cm from the incisors. - No specimens collected. Recommendation: - Discharge patient to home (ambulatory). - Resume regular diet. - Continue present medications. - Return to referring physician as previously scheduled. MD Jason Grant MD 10/26/2017 3:47:16 PM This report has been signed electronically. Note Initiated On: 10/26/2017 2:47 PM I attest to the content of the Intraoperative Record and orders documented therein, exceptions below
--- NOTE | 2017-10-26 15:52 | Anesthesiology Progress Note ---
Anesthesia Post Op Note Date & Time Oct 26, 2017 at 15:52 Vital Signs Pain Intensity: 3 Vital Signs Past 12 Hours Date Time Temp Pulse Resp B/P (MAP) Pulse Ox O2 Delivery O2 Flow Rate FiO2 10/26/17 15:48 76 16 131/97 (108) 98 Room Air 10/26/17 15:34 92 16 125/89 (101) 99 Room Air 10/26/17 14:09 36.7 80 16 110/85 (93) 97 Room Air Notes Mental Status: alert / awake / arousable, participated in evaluation Pt Amnestic to Procedure: Yes Nausea / Vomiting: adequately controlled Pain: adequately controlled Airway Patency, RR, SpO2: stable & adequate BP & HR: stable & adequate Hydration State: stable & adequate Anesthetic Complications: no major complications apparent
[2017-10-26 16:02] VITALS: BP 131/79; PULSE 74; O2SAT 98
== END | disposition home or self-care (01) ==
LOC: C.GI 13:44
PROVIDERS: ATTEND Internal Medicine Gastroenterology
DX: R10.32 Left lower quadrant pain (principal); D64.9 Anemia, unspecified; N80.9 Endometriosis, unspecified; Z90.710 Acquired absence of both cervix and uterus; Z85.43 Personal history of malignant neoplasm of ovary